=== PATIENT | female | born 1960 | race African-American/Black ===

== ENCOUNTER 2016-11-29 10:58 | Emergency (ER) | payer MEDICARE, OTHER ==
[~2016-11-29] VITALS: Ht 165.1 cm; Wt 68.0 kg
[~2016-11-29 10:58] MED LIST: CYCLOBENZAPRINE10 MG ORAL; IBUPROFEN600 MG ORAL
[2016-11-29] MEDS ORDERED: NKM (11:08)
[2016-11-29 12:09] VITALS: BP 184/139
[2016-11-29] MEDS ORDERED: PENICILLIN V P500 MG PO (12:33)
[2016-11-29] MEDS ORDERED: IBUPROFEN600 MG ORAL (12:34)
--- NOTE | 2016-12-04 14:05 | Emergency Room Report ---
History of Present Illness General Chief Complaint: General Complaint Source: Patient Present Illness HPI Patient's a 56-year-old female who presented after having increased left-sided facial pain. Patient had previously reportedly had a dental procedure performed. She states this had become somewhat infected after the procedure. Patient was noted to have no recent fevers. She stated that she had been having increased facial pain. This was primarily to the left upper maxillary region. Patient been present for several weeks. She stated that she was suing her dentist. The patient was noted to have multiple medication allergies. Patient was also complaining of pain to her lower extremities. The patient states she has chronic back pain. Allergies: Coded Allergies: ACETAMINOPHEN (Verified Allergy, Unknown, 07/12/15) HYDROCODONE (Verified Allergy, Unknown, 07/12/15) IODINE (Verified Allergy, Unknown, 07/12/15) Patient History Past Medical History: see triage record Last Menstrual Period: na Reviewed Nursing Documentation: PMH: Agreed, PSxH: Agreed Nursing Documentation-PMH Past Medical History: No Stated History Review of Systems All Other Systems: negative except mentioned in HPI Physical Exam Vital Signs Date Time Temp Pulse Resp B/P (MAP) Pulse Ox O2 Delivery O2 Flow Rate FiO2 11/29/16 11:03 97.5 74 18 156/69 98 Room Air General Appearance: well appearing, no apparent distress, alert, GCS 15 Head: normocephalic, atraumatic ENT: hearing grossly normal, normal voice, other - Minimal erythema to the gingiva of the left upper maxilla. There is no evident fluctuant area. Uvula is midline Neck: full range of motion, supple Respiratory: no respiratory distress, speaking full sentences Musculoskeletal: no calf tenderness Neurologic: normal gait Psychiatric: mood/affect normal Skin: no rash Medical Decision Making Diagnostic Impression: Primary Impression: Chronic dental pain ER Course Patient presented for dental pain.Differential diagnosis included but was not limited to trigeminal neuralgia, dental abscess, dry socket, osteomyelitis, nerve injury. The patient was noted to have a benign exam. The patient may have a mild infection and so was given a prescription for penicillin. The patient does not appear to require imaging at this time. The patient is advised to follow up with dentist in 1-2 days. Patient is advised to return if any worsening condition or if any changes in status that are concerning. Last Vital Signs Date Time Temp Pulse Resp B/P (MAP) Pulse Ox O2 Delivery O2 Flow Rate FiO2 11/29/16 12:42 98.5 84 18 184/139 98 Room Air Status: improved Disposition: HOME, SELF-CARE Condition: Improved Scripts Ibuprofen* (MOTRIN*) 600 Mg Tablet 600 MG ORAL THREE TIMES A DAY, #30 TAB Prov: Noam Miller 11/29/16 Penicillin V Potassium* (PENVK*) 500 Mg Tablet 500 MG PO Q6H, #28 TAB 0 Refills Prov: Noam Miller 11/29/16 Referrals: [facility] (PCP) Noam Miller Dec 04, 2016 14:05
== END 2016-11-29 12:42 | disposition home or self-care (01) ==
LOC: EMR 11:39
DX: K08.89 Other specified disorders of teeth and supporting structures (principal); G89.29 Other chronic pain; M79.605 Pain in left leg; M79.604 Pain in right leg; Z88.6 Allergy status to analgesic agent; Z91.041 Radiographic dye allergy status
CPT/HCPCS: 99284

== ENCOUNTER 2018-04-13 11:12 | Emergency (ER) | payer MEDICARE, OTHER ==
[~2018-04-13] VITALS: Ht 165.1 cm; Wt 68.0 kg
[~2018-04-13 11:12] MED LIST changes: +NKM; +PENICILLIN V P500 MG PO
[2018-04-13 11:31] VITALS: BP 169/74
[2018-04-13] MEDS ORDERED: AMOXICILLIN500 MG ORAL (11:31)
[2018-04-13] MEDS ORDERED: IBUPROFEN600 MG ORAL (11:31)
--- NOTE | 2018-04-13 11:32 | NUR ---
ED Nurse Note: pt walked in to ED due to left side of toothache for last 1 week. unable to make an appointment with dentist. AAO x4. respirations even and non-labored noted. per pt, " I can not stay here long, I just need antibiotics." will wait for the further order.
[2018-04-13 11:37] VITALS: BP 169/74
--- NOTE | 2018-04-13 11:38 | NUR ---
ED Nurse Note: Patient is being discharged from medical care with prescription. Awake, alert and oriented x3. ID band were removed. Patient ambulated out with all personal belongings with steady gait. per Dr. Baptiste, it is ok to discharge pt with 169/74 mmHg.
--- NOTE | 2018-04-13 14:46 | Emergency Room Report ---
History of Present Illness General Chief Complaint: Toothache Source: Patient Present Illness HPI Patient presents with reports that she feels she has a dental infection Gingival infection patient reports that she has partials in place And she feels that some area of the partials are irritating her gums Denies any fevers denies any sore throat denies any chest pain or shortness of breath Patient reports that she was not able to see her dentist however is attempting appropriate follow-up Denies any sinus pressure denies any neck pain or photophobia Allergies: Coded Allergies: ACETAMINOPHEN (Verified Allergy, Unknown, 07/12/15) HYDROCODONE (Verified Allergy, Unknown, 07/12/15) IODINE (Verified Allergy, Unknown, 07/12/15) Patient History Past Medical History: see triage record Pertinent Family History: none Now: No Reviewed Nursing Documentation: PMH: Agreed; PSxH: Agreed Nursing Documentation-PMH Past Medical History: No Stated History Review of Systems All Other Systems: negative except mentioned in HPI Physical Exam Vital Signs Date Time Temp Pulse Resp B/P (MAP) Pulse Ox O2 Delivery O2 Flow Rate FiO2 04/13/18 11:16 97.7 83 18 169/74 98 Room Air Sp02 EP Interpretation: reviewed, normal General Appearance: well appearing, no apparent distress Head: normocephalic, atraumatic Eyes: bilateral eye PERRL, bilateral eye EOMI ENT: hearing grossly normal, other - Patient has some irritation to the left back molar region of the gingival area, the partials were removed but I cannot appreciate any obvious abscess areas or fullness Neck: supple Respiratory: lungs clear, no retraction, no accessory muscle use Musculoskeletal: normal inspection Neurologic: alert, oriented x3, responsive Skin: normal color, no rash Lymphatic: no adenopathy Medical Decision Making Diagnostic Impression: Primary Impression: dental pain ER Course Patient feels that there is likely some infection and she has had this in the past Given her complaints and presentation she was provided with antibiotics Did not require any emergent imaging and is stable for close initial follow-up Last Vital Signs Date Time Temp Pulse Resp B/P (MAP) Pulse Ox O2 Delivery O2 Flow Rate FiO2 04/13/18 11:37 97.7 83 18 169/74 98 Room Air Status: improved Disposition: HOME, SELF-CARE Condition: Stable Scripts Ibuprofen* (MOTRIN*) 600 Mg Tablet 600 MG ORAL Q8H PRN for For Pain, #20 TAB 0 Refills Prov: Chuck Baptiste DO 04/13/18 Amoxicillin* (AMOXIL*) 500 Mg Capsule 500 MG ORAL THREE TIMES A DAY, #21 CAP Prov: Chuck Baptiste DO 04/13/18 Referrals: OTHER,REFERRING (PCP) Patient Instructions: Dental Pain Additional Instructions: Patient is provided with the discharge instructions notified to follow up with primary doctor in the next 2-3 days otherwise return to the er with any worsening symptoms. Please note that this report is being documented using [email or web address] technology. This can lead to erroneous entry secondary to incorrect interpretation by the dictating instrument. Chuck Baptiste DO Apr 13, 2018 14:46
== END 2018-04-13 12:00 | disposition home or self-care (01) ==
LOC: EMR 12:00
DX: K08.89 Other specified disorders of teeth and supporting structures (principal); Z88.6 Allergy status to analgesic agent; Z88.5 Allergy status to narcotic agent
CPT/HCPCS: 99282

== ENCOUNTER 2018-10-24 08:29 | Emergency (ER) | payer OTHER ==
[~2018-10-24] VITALS: Ht 165.1 cm; Wt 68.0 kg
[~2018-10-24 08:29] MED LIST changes: +AMOXICILLIN500 MG ORAL
[2018-10-24 08:33] VITALS: BP 164/88
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
[2018-10-24] MEDS ORDERED: CYCLOBENZAPRINE10 MG ORAL (09:03)
[2018-10-24] MEDS ORDERED: IBUPROFEN600 MG ORAL (09:03)
[2018-10-24 09:10] VITALS: BP 164/88
== END 2018-10-24 09:10 | disposition home or self-care (01) ==
LOC: EMR 08:58
DX: S16.1XXA Strain of muscle, fascia and tendon at neck level, initial encounter (principal); M62.838 Other muscle spasm; K08.89 Other specified disorders of teeth and supporting structures; Z88.6 Allergy status to analgesic agent; Z91.041 Radiographic dye allergy status; V49.69XA Unspecified car occupant injured in collision with other motor vehicles in traffic accident, initial encounter; Y92.410 Unspecified street and highway as the place of occurrence of the external cause
CPT/HCPCS: 99282